=== PATIENT | female | born 1985 | race American Indian/Alaskan Native ===

== ENCOUNTER 2018-03-26 09:55 | Outpatient (CLI) | payer OTHER ==
--- NOTE | 2018-03-26 11:31 | Mammography Report ---
BILATERAL DIGITAL DIAGNOSTIC MAMMOGRAM with CAD and LEFT BREAST ULTRASOUND: 03/26/18 CLINICAL: 32-year-old with a palpable left breast lump. She states that she has felt it for about one month. COMPARISON:None. This is a baseline mammogram. FINDINGS: The breasts are heterogeneously dense, which may obscure small masses. An oval 4 cm upper outer left breast mass corresponds to the palpable lump. Margins are indistinct or obscured.No other mass, architectural distortion or suspicious calcifications. Ultrasound of the upper outer left breast was performed and demonstrated an oval solid heterogeneous hypoechoic relatively smooth mass at 2 o'clock 13 cm from the nipple. It measures 4.1 x 4.1 x 1.7 cm. Portions of the margin are mildly lobulated. No posterior shadowing or through transmission. IMPRESSION: A probably benign 4.1 cm left breast mass at 2 o'clock 13 cm from the nipple.Recommend ultrasound-guided needle biopsy to confirm benignity. BI-RADS CATEGORY: 4A--Mildly Suspicious I discussed the findings and the recommendation for needle core biopsy with the patient at the time of the examination. ACR BI-RADS MAMMOGRAPHIC CODES: 0 = Needs additional imaging evaluation; 1 = Negative; 2 = Benign; 3 = Probably benign; 4 = Suspicious; 5 = Malignant; 6 = Known biopsy-proven malignancy COMMENT: 1. Dense breast tissue, i.e., adenosis, fibrocystic changes, etc., may obscure an underlying neoplasm. 2. Approximately 10% of cancers are not detected with mammography. 3. A negative mammography report should not delay biopsy if a clinically suspicious mass is present. COMMENT: Patient follow-up letters are generated by our [employer] application.
== END 2018-03-26 09:56 | disposition home or self-care (01) ==
LOC: SPVWC 09:55
PROVIDERS: ATTEND Obstetrics & Gynecology
DX: N63.21 Unspecified lump in the left breast, upper outer quadrant (principal)
CPT/HCPCS: 77066

== ENCOUNTER 2018-04-14 12:53 | Outpatient (CLI) | payer OTHER ==
--- NOTE | 2018-04-14 14:21 | Mammography Report ---
LEFT DIGITAL DIAGNOSTIC MAMMOGRAM: 04/14/18 12:53:00 CLINICAL: For clip placement immediately status post ultrasound biopsy. COMPARISON:03/26/18 FINDINGS: A biopsy clip is now identified within the upper outer mass. IMPRESSION: Concordant clip placement status post ultrasound biopsy. BI-RADS CATEGORY: 4A--Mildly Suspicious Pathology pending.
--- NOTE | 2018-04-14 15:20 | Ultrasound Report ---
ULTRASOUND GUIDED NEEDLE CORE BIOPSY LEFT BREAST WITH CLIP PLACEMENT: 04/14/18 13:00:00 CLINICAL: A 4 cm left breast mass at 2 o'clock 13 cm from the nipple. COMPARISON :03/26/18 FINDINGS: The procedure was explained to the patient and informed consent was obtained. Ultrasound demonstrated the previous described oval solid mass.. I marked the breast with a felt tip marker and a time out was called. The skin was prepped with Betadine and anesthetized with 1% lidocaine. Needle core biopsy was performed through a tiny dermatotomy using ultrasound guidance, 2% lidocaine with epinephrine for deep anesthesia and a 14-gauge Achieve biopsy device. 4 cores were obtained and placed in formalin. A clip was deployed within the mass. The patient tolerated the procedure well and there were no apparent complications. Hemostasis was achieved with minimal pressure and a sterile dressing was applied. A two view mammogram demonstrated concordant placement of the clip. She left the department in good condition and was given instructions for wound care and followup. IMPRESSION: Uncomplicated ultrasound guided needle core biopsy with clip placement left breast.
== END 2018-04-14 12:54 | disposition home or self-care (01) ==
LOC: SPVWC 12:53
PROVIDERS: ATTEND Obstetrics & Gynecology
DX: D24.2 Benign neoplasm of left breast (principal); N60.22 Fibroadenosis of left breast; J45.909 Unspecified asthma, uncomplicated; E66.9 Obesity, unspecified; Z68.41 Body mass index [BMI] 40.0-44.9, adult; Z85.3 Personal history of malignant neoplasm of breast; Z90.12 Acquired absence of left breast and nipple; Z91.013 Allergy to seafood; Z90.49 Acquired absence of other specified parts of digestive tract; Z79.899 Other long term (current) drug therapy; Z91.041 Radiographic dye allergy status; Z98.891 History of uterine scar from previous surgery; Z86.2 Personal history of diseases of the blood and blood-forming organs and certain disorders involving the immune mechanism; Z98.890 Other specified postprocedural states
CPT/HCPCS: 88305

== ENCOUNTER 2021-04-25 05:57 | Inpatient (IN) | payer OTHER ==
[2021-04-18 10:30] LABS: BUN/Creatinine Ratio 10; Blood Urea Nitrogen 8 mg/dL (7-17); Calcium 9.7 mg/dL (8.4-10.2); Hemolysis Index 2
[2021-04-18 10:48] LABS: Eosinophils % (Auto) 0.8 % (0.0-4.3); Hematocrit 39.7 % (30.3-42.9); Hemoglobin 12.6 gm/dl (10.1-14.3); Lymphocytes # (Auto) 1.6 K/mm3 (1.2-5.4); Lymphocytes % (Auto) 45.4 % (13.4-35.0); Mean Corpuscular HGB Conc 32 % (30-34); Mean Corpuscular Volume 92 fl (79-97); Monocytes # (Auto) 0.5 K/mm3 (0.0-0.8); Platelet Count 208 K/mm3 (140-440); Red Blood Count 4.33 M/mm3 (3.65-5.03)
--- NOTE | 2021-04-18 17:06 | Anesthesia Consultation ---
Anesthesia Consult and Med Hx Date of service: 04/25/21 - Airway Anesthetic Teeth Evaluation: Caps (Braces and implant) ROM Head & Neck: Adequate Mental/Hyoid Distance: Adequate Mallampati Class: Class II Intubation Access Assessment: Good - Pre-Operative Health Status ASA Pre-Surgery Classification: ASA2 Proposed Anesthetic Plan: General Nerve Block: TAP - Pulmonary Hx Smoking: No Hx Sleep Apnea: No - Cardiovascular System Hx Hypertension: Yes (IN PAST-OFF MEDS SINCE 07/29. Elevated BP today) Hx Heart Attack/AMI: No - Central Nervous System Hx Back Pain: Yes (OCC.) Hx Psychiatric Problems: Yes (Anxiety) - Hematic Hx Anemia: No Hx Sickle Cell Disease: Yes (TRAIT) - Other Systems Hx Alcohol Use: No Hx Substance Use: No Hx Cancer: No
--- NOTE | 2021-04-24 09:55 | History and Physical Report ---
History of Present Illness Date of examination: 04/21/21 Date of admission: 04/25/21 Chief complaint: fibroids History of present illness: Visit Type: Pre-Op CC: pre op. History of Present Illness: pt presents for Pre-op visit: Abdominal Myomectomy............... ......................................................Judi Tee April 19, 2021 9:51 AM Mask, Patient denies fever, cough, shortness of breath and exposure to COVID-19. Pt presents for preop for abdominal myomectomy. All risk/benefits/alternatives were d/w pt and questions were addressed and answered. Risk including but not limited to injury to: infection, bleeding, need for transfusion , injury bladder, bowel, uterus, ovaries, tubes need for hysterectomy as a life saving measure, fibroids remaining in utero. Pt expressed understanding. Consent signed and placed on the chart. Vital Signs: Patient Profile: 35 Years Old Female LMP: 03/27/2021 Height: 65 inches Weight: 192 pounds BMI: 31.95 Temp: 98.0 degrees F BP sittin / 82 (left arm) Menstrual History: LMP (date): 03/27/2021 Current Method of Contraception: Abstinence Date of Last Pap Smear: 03/30/2020 [OB-New Pt-Past Preg Hx-CCC] SCADA ENGINEER History Uterine Surgery (not C/S): negative Operations: Negative Past Surgical History Hospitalizations: negative Anesthesia Complications: negative Abnormal PAP: negative Uterine Anomaly: negative TYLOR Exposure: negative Infertility: negative Medical Hx Comments: fibroids Infection History HIV Risk Eval: no Personal hx. of genital herpes: no Partner hx. of genital herpes: no Hx of STD: condy Active Medications (reviewed today): elderberry () SEAMOSS () MAGNESIUM PILLS () VITAMIN C () VITAMIN D () IBUPROFEN () MULTI VITAMIN () Current Allergies (reviewed today): * SHELLFISH (Critical) Past Medical History: Reviewed history from 03/29/2020 and no changes required: Fibroids Past Surgical History: Reviewed history from 12/21/2010 and no changes required: Negative Past Surgical History [FH--[facility]] Risk Factors: PAP Smear History: Date of Last PAP Smear: 03/30/2020 Review of Systems General Denies fever, chills, sweats, anorexia, fatigue, weakness, malaise, weight loss and sleep disorder. Denies nausea, vomiting, headache, swelling of legs, abdominal pain, vaginal discharge, vaginal bleeding and contractions. Complains of urinary frequency, abnormal vaginal bleeding and pelvic pain. Denies vaginal discharge, incontinence, dysuria, hematuria, amenorrhea, menorrhagia, genital sores, decreased libido, painful periods, painful sex, urinary urgency, hot flashes, vaginal dryness, vaginal itching and vaginal odor. CV Denies chest pains, palpitations, syncope, dyspnea on exertion, orthopnea, PND and peripheral edema. Resp Denies cough, dyspnea at rest, excessive sputum, hemoptysis, wheezing and pleurisy. GI Denies nausea, vomiting, diarrhea, constipation, change in bowel habits, abdominal pain, melena, hematochezia, jaundice, gas/bloating, indigesti on/heartburn, dysphagia and odynophagia. Endo Denies cold intolerance, heat intolerance, polydipsia, polyphagia, polyuria and unusual weight change. Breast Denies left breast lump, right breast lump, nipple discharge, bloody discharge from nipple, breast pain, abnormal mammogram and breast enlargement. MS Denies back pain, joint pain, joint swelling, muscle cramps, muscle weaknes s, stiffness, arthritis, sciatica, restless legs, leg pain at night and leg pain with exertion. Derm Denies rash, itching, dryness and suspicious lesions. Neuro Denies paralysis, paresthesias, headache, seizures, tremors, vertigo, transient blindness, frequent falls, frequent headaches and difficulty walking. Psych Denies depression, anxiety, irritability and mood swings. Eyes Denies blurring, diplopia, irritation, discharge, vision loss, eye pain and photophobia. ENT Denies earache, ear discharge, tinnitus, decreased hearing, nasal congestion, nosebleeds, sore throat and hoarseness. Allergy Denies urticaria, allergic rash, hay fever and recurrent infections. Heme Denies abnormal bruising, bleeding and enlarged lymph nodes. [Labs In-House] Physical Exam Appearance: well developed, well nourished, no acute distress Other Exams Lungs: no rales, rhonchi, or wheezes Abdomen: mass palpated several cm above the umbilicus right >left irregular in shape firm Extremities: normal alignment, no joint enlargement, crepitus, masses or tenderness; normal tone and strength Genitourinary Exam Comments: deferred until EUA Past History Past Medical History: other (see hpi) Past Surgical History: other (see hpi) SCADA ENGINEER History: other (see hpi) Family/Genetic History: other (see hpi) Social history: other (see hpi) Medications and Allergies Allergies Allergy/AdvReac Type Severity Reaction Status Date / Time No Known Allergies Allergy Unverified 04/17/21 11:37 Home Medications Medication Instructions Recorded Confirmed Last Taken Type Ascorbic Acid [Vitamin C] 1,000 mg PO DAILY 04/17/21 04/17/21 Unknown History Gyiopsc-Bwweactnx-Vwyj Tablet 1 tab PO DAILY 04/17/21 04/17/21 Unknown History Cholecalciferol (Vitamin D3) 5,000 unit PO DAILY 04/17/21 04/17/21 Unknown History [Vitamin D3] Iron 45 mg PO DAILY 04/17/21 04/17/21 Unknown History Vit C/Vit D3/E/Zinc/Elderberry 1 each PO DAILY 04/17/21 04/17/21 Unknown History [Airborne Elderberry Gummy] activated charcoaL [Activated 520 mg PO DAILY 04/17/21 04/17/21 Unknown History Charcoal] Active Meds: Active Medications Acetaminophen (Acetaminophen 500 Mg Tab) 1,000 mg PO ONCE ONE Stop: 04/25/21 06:01 Celecoxib (Celecoxib 200 Mg Cap) 400 mg PO PREOP NR Stop: 04/25/21 23:59 Fentanyl (Fentanyl 100 Mcg/2 Ml Inj) 100 mcg IV ONCE ONE Stop: 04/25/21 06:01 Lactated Ringer's (Lactated Ringers) 1,000 mls @ 125 mls/hr IV DIRECT KAREN Magnesium Oxide (Magnesium Oxide 400 Mg Tab) 400 mg PO ONCE ONE Stop: 04/25/21 06:01 Methocarbamol (Methocarbamol 750 Mg Tab) 1,500 mg PO ONCE ONE Stop: 04/25/21 06:01 Midazolam HCl (Midazolam 2 Mg/2 Ml Inj) 2 mg IV PREOP NR Stop: 04/25/21 23:59 Review of Systems All systems: negative - Vital Signs Vital signs: Vital Signs Temp Pulse Resp BP Pulse Ox 97.9 F 85 20 144/102 98 04/18/21 09:30 04/18/21 09:30 04/18/21 09:30 04/18/21 09:30 04/18/21 09:30 Temp Pulse Resp BP Pulse Ox 97.9 F 85 20 144/102 98 04/18/21 09:30 04/18/21 09:30 04/18/21 09:30 04/18/21 09:30 04/18/21 09:30 - Physical Exam Cardiovascular: Normal S1, Normal S2 Lungs: Positive: Clear to auscultation, Normal air movement Abdomen: Positive: normal appearance, soft, mass (palpated above umbilicus), other Genitourinary (Female): Positive: other (deferred) Results Result Diagrams: 04/18/21 06:00 04/18/21 06:00 All other labs normal. Assessment and Plan - Patient Problems (1) Fibroid Status: Acute Plan to address problem: -admit an prepare for abdominal myomectomy -consents signed and placed the chart.
[~2021-04-25 05:57] MED LIST: SODIUM CHLORIDE 0.9% 50 ML IVPB IV ONE; SODIUM CHLORIDE 0.9% IRR 1,500 ML BOTTLE IR ONE; VASOPRESSIN 20 UNIT/1 ML INJ IV ONE; WATER FOR IRRIG STERILE 1,500 ML BOTTLE IR ONE
[2021-04-25] MEDS ORDERED: ACETAMINOPHEN 500 MG TAB PO ONE ×2 (06:00→19:30)
[2021-04-25] MEDS ORDERED: MIDAZOLAM 2 MG/2 ML INJ IV NR (06:00)
[2021-04-25] MEDS ORDERED: CELECOXIB 200 MG CAP PO NR (06:00)
[2021-04-25] MEDS ORDERED: GABAPENTIN 300 MG CAP PO NR (06:00)
[2021-04-25] MEDS ORDERED: ceFAZolin/Water 2 GM/20 ML 2 GM/20 ML SYRINGE IV NR (06:00)
[2021-04-25] MEDS ORDERED: fentaNYL 100 MCG/2 ML INJ IV ONE (06:00)
[2021-04-25] MEDS ORDERED: MAGNESIUM OXIDE 400 MG TAB PO ONE (06:00)
[2021-04-25] MEDS: LACTATED RINGERS 1,000 ML IV SCH ×2 (06:40→19:22)
[2021-04-25] MEDS ORDERED: METHYLENE BLUE 50 MG/10 ML AMP ONE (07:07)
[2021-04-25] MEDS ORDERED: SODIUM CHLORIDE 0.9% 100 ML ONE (07:07)
[2021-04-25] MEDS ORDERED: VASOPRESSIN 20 UNIT/1 ML INJ ONE (07:07)
[2021-04-25] MEDS ORDERED: CITRIC ACID-SOD CITRATE 500 ML IV ONE (07:07)
[2021-04-25] MEDS ORDERED: LIDOCAINE MPF (2%) 20 MG/1 ML VIAL 5 ML ONE (07:27)
[2021-04-25] MEDS ORDERED: ROCURONIUM 50 MG/5 ML INJ IV ONE ×3 (07:27→11:05)
[2021-04-25] MEDS ORDERED: ONDANSETRON 4 MG/2 ML INJ ONE (07:27)
[2021-04-25] MEDS ORDERED: KETAMINE/STERILE WATER 50 MG/ML SYRINGE ONE (07:27)
[2021-04-25] MEDS ORDERED: propofoL 200 MG/20 ML VIAL IV ONE (07:27)
[2021-04-25] MEDS ORDERED: BUPIVACAINE/PF (0.25%) 2.5 MG/ML 30 ML VIAL INFILTRATI ONE (07:29)
[2021-04-25] MEDS ORDERED: cloNIDine/PF 1,000 MCG/10 ML VIAL EP ONE (07:29)
[2021-04-25] MEDS ORDERED: dexAMETHasone 4 MG/ML VIAL ONE (07:29)
[2021-04-25] MEDS ORDERED: dexAMETHasone 20 MG/5 ML VIAL ONE (07:30)
[2021-04-25] MEDS ORDERED: SODIUM CHLORIDE 0.9% 50 ML IVPB IV ONE (08:39)
[2021-04-25] MEDS ORDERED: SODIUM CHLORIDE 0.9% IRR 1,500 ML BOTTLE IR ONE ×2 (08:39)
[2021-04-25] MEDS ORDERED: VASOPRESSIN 20 UNIT/1 ML INJ IV ONE (08:39)
--- NOTE | 2021-04-25 09:10 | Anesthesia Day of Surgery ---
Anesthesia Day of Surgery - Day of Surgery Patient Examined: Yes Patient H&P Reviewed: Yes Patient is NPO: Yes
[2021-04-25] MEDS ORDERED: ONDANSETRON 4 MG/2 ML INJ IV PRN (09:12)
[2021-04-25] MEDS ORDERED: SODIUM CHLORIDE 0.9% 1000 ML 1,000 ML ONE ×4 (09:39→13:27)
[2021-04-25] MEDS ORDERED: ePHEDrine SULFATE 50 MG/1 ML INJ ONE (09:48)
[2021-04-25] MEDS ORDERED: ALBUMIN HUMAN 5% (12.5 GM/250 ML) INJ IV ONE (10:46)
[2021-04-25 10:51] LABS: Basophils % (Auto) 0.2 % (0.0-1.8); Eosinophils % (Auto) 0.2 % (0.0-4.3); Hematocrit 27.4 % (30.3-42.9); Lymphocytes # (Auto) 0.8 K/mm3 (1.2-5.4); Lymphocytes % (Auto) 10.2 % (13.4-35.0); Mean Corpuscular HGB Conc 33 % (30-34); Mean Corpuscular Volume 91 fl (79-97); Monocytes # (Auto) 0.1 K/mm3 (0.0-0.8); Monocytes % (Auto) 1.5 % (0.0-7.3); Platelet Count 159 K/mm3 (140-440); Red Cell Distribution Width 14.3 % (13.2-15.2)
[2021-04-25] MEDS ORDERED: PHENYLEPHRINE/NS 1,000 MCG/10 ML SYRINGE (OR USE) IV ONE ×2 (11:00→13:16)
[2021-04-25] MEDS ORDERED: SODIUM CHLORIDE 0.9% 500 ML 500 ML IV ONE (11:02)
[2021-04-25] MEDS ORDERED: MORPHINE 4 MG/1 ML INJ IV PRN (12:17)
[2021-04-25] MEDS ORDERED: traMADol 50 MG TAB PO PRN (12:17)
[2021-04-25] MEDS ORDERED: MORPHINE 2 MG/1 ML INJ IV PRN (12:17)
[2021-04-25] MEDS ORDERED: IBUPROFEN 800 MG TAB PO PRN (12:17)
--- NOTE | 2021-04-25 12:17 | Operative Report ---
Operative Report Operative Report: Date of procedure: 04/25/2021 Pre-operative diagnosis: Fibroids Post-operative diagnosis: Same Procedure name(s): 1. Abdominal myomectomy 2. Examine anesthesia Surgeon: Dr. Albania Weaver Blue Leather Sorter: Dr. Saundra Hardy Anesthesia: Gen. endotracheal anesthesia EBL: 800 mL Urine output: 370 mL of clear urine out at end of the procedure Fluids: 2700 mL Albumin: 250 mL Cell Saver: 1 unit Findings: An large abdominal mass extending almost to the xiphoid. Multiple my omas removed of various sizes. A total of 24 fibroids were removed. Normal fallopian tubes and ovaries bilaterally Indications: Patient with a long history of uterine fibroids that began to be symptomatic. Patient desired to retain her uterus. All risk benefits and alternatives were discussed with the patient. Consents were signed and placed on the chart. Procedure: Procedure: Patient was taken to the operating room wishes placed under general endotracheal anesthesia in dorsal lithotomy position. The patient was then prepped and draped in normal sterile fashion. A midline abdominal inc ision was made with the scalpel and carried down to the underlying layer of fascia with the Bovie. The fascia was incised in the midline and this incision was extended superiorly and inferiorly with the Bovie. The rectus muscles were bluntly divided in the midline. The peritoneum was identified and entered into sharply. This incision was extended superiorly and inferiorly via blunt and sharp dissection. The uterus was then exteriorized. Pitressin was placed subserosally over the numerous myomas. The myomectomy was performed in usual fashion with the removal of 24 myomas as stated above. All uterine incisions were closed using several layers with 0 Vicryl. Excellent hemostasis was noted. There was copiously irrigated. Interceed was placed over the uterine incisions. Excellent hemostasis was noted Cell Saver team was present during the procedure and patient did receive 250 mL of red blood cells back. The uterus was returned to the abdomen. The anterior rectus muscles and antirectus fascia was reapproximated in a single stitch using 0 looped PDS. The subcutaneous fat was reapproximated using 2-0 Vicryl in interrupted sutures. The skin was reapproximated with 4-0 Monocryl in a running fashion with Surgicel placed over the skin incision. Sponge lap and needle counts were all correct 3. Patient was taken to the recovery room awake and in stable condition.
[2021-04-25] MEDS ORDERED: SUGAMMADEX SODIUM 200 MG/2 ML VIAL IV ONE (12:21)
[2021-04-25] MEDS ORDERED: ACETAMINOPHEN 325 MG TAB PO PRN (12:27)
[2021-04-25] MEDS: HYDROmorphone 1 MG/1 ML INJ IV PRN ×2 (12:52→13:05)
[2021-04-25] MEDS ORDERED: SODIUM CHLORIDE 0.9% 200 ML ONE (13:17)
[2021-04-25] MEDS: ceFAZolin/NS 1 GM/50 ML 1 GM/50 ML BAG IV SCH ×2 (16:08→23:49)
[2021-04-25 17:54] LABS: Hematocrit 24.4 % (30.3-42.9); Hemoglobin 7.9 gm/dl (10.1-14.3)
[2021-04-25] MEDS ORDERED: SODIUM CHLORIDE 0.9% 500 ML 500 ML IV SCH (18:02)
--- NOTE | 2021-04-25 18:07 | Event Note ---
Date: 04/25/21 Findings of sx were d/w pt. Pt now states that yesterday she had a heavy bled stating " I bled out". I advised that her h/h was likely lower than what it was on last week at her pre op visit. Will give additional two units of blood and repeat h/h in the am. Plan of care d/w and all questions were addressed and answered. RN informed of plan to transfuse two units. Will bolus with fluids at this time while blood is being prepared. Incision c/d id. abdomen not distended but uterus s palpated at the umbilicus and is firm at this time. Will con't to closely monitor.
[2021-04-25] MEDS ORDERED: LACTATED RINGERS 500 ML IV ONE (19:15)
[2021-04-25] MEDS ORDERED: diphenhydrAMINE 50 MG/ML VIAL IV ONE (19:30)
--- NOTE | 2021-04-25 21:32 | Event Note ---
Date: 04/25/21 Called by RN and told that there is no O neg blood in house and it must be ordered for release. Blood bank was not able to give an estimated time as to when the blood would be available. Pt stable at this time as per RN. Will cont to support with IVFs until able to replace volume with blood.
[2021-04-25] MEDS ORDERED: ePHEDrine SULFATE 50 MG/1 ML INJ IV PRN (23:53)
--- NOTE | 2021-04-26 00:22 | Event Note ---
Date: 04/26/21 Called by RN again due to hypotension and pt c/o feeling weak. Order for ephedrine given as well as another 500 bolus of LR. I had called the blood bank several times to get an estimate of the arrival of the blood but got no answer. When provider arrived at the bedside within 30 of speaking with RN, Blood was being verified and hanged by 2RNs. Pt awake and talking and states she is feeling descent. She no longer is c/o feeling dizzy. She does c/o some buttocks pain and shoulder pain (right) but no chest pain or palpitations. Stat h/h was ordered prior to arrival of the blood but has not been drawn. This was in an effort to see were pt was with h/h. 2 units ordered but only one released emergently due to blood shortages and I was told this unit is the only one in house. Pt is aware of the critical shortage and her and her mother have been updated as to the delay. All questions have been addressed and answered. Pt advised that we will give the one unit and then check her h/h. She expressed understanding.
[2021-04-26] MEDS: SIMETHICONE 80 MG CHEW TAB PO PRN ×3 (00:42→21:03)
[2021-04-26] MEDS: HYDROcodone/ACETAMINOPHEN 5-325 MG TAB PO PRN ×2 (05:06→17:54)
[2021-04-26] MEDS: LACTATED RINGERS 1,000 ML IV SCH (05:06)
[2021-04-26 06:33] LABS: Hematocrit 23.9 % (30.3-42.9); Hemoglobin 7.8 gm/dl (10.1-14.3)
[2021-04-26] MEDS: FERROUS SULFATE 325 MG TAB PO SCH ×3 (08:28→21:03)
[2021-04-26 10:39] LABS: Hematocrit 24.6 % (30.3-42.9); Hemoglobin 8.2 gm/dl (10.1-14.3)
--- NOTE | 2021-04-26 10:48 | Progress Note ---
Assessment and Plan - Patient Problems (1) Fibroid Current Visit: No Status: Acute Plan to address problem: POD #1 s/p abd myomectomy -con't post op care -adad -d/c tomorrow if aFVSS (2) Symptomatic anemia Current Visit: Yes Status: Acute Plan to address problem: -s/p 2 units of blood. Limited with availability of blood due to pt blood type and nation wide blood shortage. Was called by director of lab and advised the if pt is critical ie will if she does not have the transfusion then she will work on getting additional unit. Directory advised that pt is stable but does show s/sx of anemia ie dizziness with ambulation and hypotension but she is not critical or at the point of . -h/h pending and has be drawn -consider iron transfusion if pt still symptomatic and hgb <7 (3) Hypotension Current Visit: Yes Status: Acute Qualifiers: Hypotension type: postprocedural hypotension Qualified Code(s): I95.81 - Postprocedural hypotension Plan to address problem: -repeat h/h. likely due to low volume due to blood loss -con't ivfs. -anemia precautions given -follow h/h to evaluate need for repeat xfusion -pt overall doing much better today and has no sx at this time except for dizziness x1. Subjective - Subjective Date of service: 04/26/21 (LATE ENTRY. PT SEEN AT 0900) Principal diagnosis: POD #1 S/P ABD MYOMECTOMY 2)SYMPTOMATIC ANEMIA Interval history: pt states she is feeling better after second unit of blood. 2 untis ordered but only one released from [facility] for emergency use. She still has hypotension but stable in same ranges as prior and slightly improved. She had one episode of dizziness but currently has no dizziness, palpitations, or shortness of breath or chest pain. I d/w the limitations with transfusions due to blood shortage nation wide with her blood type due to covid. I advised we will repeat h/h and if still at 7 or higher closely monitor and consider and iron transfuison if not able to get blood. She and mother expressed understanding and agree with plan of care. Patient reports: appetite normal, voiding normally, dizzy ambulation, pain well controlled, ambulating normally, no flatus Objective - Vital Signs Latest vital signs: Vital Signs Temp Pulse Resp BP BP Pulse Ox 04/26/21 08:06 98.0 F 92 H 18 94/51 99 04/26/21 05:07 100/57 04/26/21 05:06 20 04/26/21 02:58 98.2 F 88 18 98/66 100 04/26/21 02:29 98.0 F 93 H 18 98/65 100 04/26/21 01:59 98.0 F 86 18 96/66 100 04/26/21 01:29 98.1 F 90 20 97/59 100 04/26/21 00:59 97.9 F 89 20 93/67 100 04/26/21 00:29 97.5 F L 92 H 18 97/66 100 04/26/21 00:28 97.4 F L 90 18 97/69 100 04/26/21 00:14 97.4 F L 91 H 20 96/66 100 04/26/21 00:09 97.2 F L 100 H 20 89/64 100 04/25/21 23:38 20 04/25/21 23:26 91 H 20 89/60 100 04/25/21 22:00 97.2 F L 20 92/88 100 04/25/21 20:12 20 04/25/21 20:00 100 04/25/21 19:48 98.2 F 98 H 20 90/55 100 04/25/21 18:18 98.3 F 95 H 18 88/56 100 04/25/21 14:05 97.6 F 102 H 18 99/62 97 04/25/21 13:40 98.2 F 97 H 16 102/62 100 04/25/21 13:30 92 H 16 100/50 100 04/25/21 13:15 96 H 16 97/61 100 04/25/21 13:00 97 H 18 104/62 100 04/25/21 12:45 103 H 18 102/59 100 04/25/21 12:40 105 H 18 95/73 100 04/25/21 12:35 97.8 F 106 H 17 119/79 100 Intake and Output 04/25/21 04/26/21 04/26/21 22:59 06:59 14:59 Intake Total 1890 1490 Output Total 725 600 Balance 1165 890 Intake: IV 1050 1000 ANCEF/NS 1 GM/50 ML 1 gm 50 In 50 ml @ 100 mls/hr IV Q8H [facility] Rx#:[id number] Lactated Ringers 1,000 ml 1000 1000 @ 125 mls/hr IV DIRECT [facility] Rx#:[id number] Oral 360 240 Intake, Free Water 480 Blood Product 250 Leukoreduced Red Blood 250 Cells Unit [id number] Output: Urine 725 600 Indwelling Catheter 725 600 Other: Total, Intake Amount 240 120 Total, Output Amount 300 400 Voiding Method Indwelling Catheter - Exam Cardiovascular: Present: Normal S1, Normal S2 Lungs: Present: Clear to auscultation, Normal air movement Abdomen: Present: normal appearance, soft, normal bowel sounds. Absent: distention, tenderness, guarding Uterus: Present: normal, firm, fundal height at umbilicus. Absent: bogginess, tenderness Extremities: Present: normal. Absent: edema Incision: Present: normal, dry, intact, dressed - Labs Labs: Abnormal lab results 04/25/21 04/25/21 04/25/21 Range/Units 06:40 17:45 Unknown RBC 3.00 L (3.65-5.03) M/mm3 Hgb 7.9 L 9.0 L (10.1-14.3) gm/dl Hct 24.4 L 27.4 L (30.3-42.9) % Lymph % (Auto) 10.2 L (13.4-35.0) % Lymph # (Auto) 0.8 L (1.2-5.4) K/mm3 Seg Neutrophils % 87.9 H (40.0-70.0) % Crossmatch See Detail 04/26/21 Range/Units 05:42 RBC (3.65-5.03) M/mm3 Hgb 7.8 L (10.1-14.3) gm/dl Hct 23.9 L (30.3-42.9) % Lymph % (Auto) (13.4-35.0) % Lymph # (Auto) (1.2-5.4) K/mm3 Seg Neutrophils % (40.0-70.0) % Crossmatch
--- NOTE | 2021-04-26 10:53 | Event Note ---
Date: 04/26/21 f/u h/h 8.05/04. improved and pt stable. Will cont to closely monitor
--- NOTE | 2021-04-26 20:49 | Event Note ---
Date: 04/26/21 Pt seen at 1030 pm. Dressing removed. Some mild bleeding noted from raw skin edges. steristrips applied and pressure dressing. Pt tolerated procedure well. Wound care d/w pt and mother. Both expressed understandng. Pt tolerated a regular diet and has no c/o at this time.
[2021-04-27] MEDS: HYDROcodone/ACETAMINOPHEN 5-325 MG TAB PO PRN ×2 (00:22→06:07)
[2021-04-27] MEDS: FERROUS SULFATE 325 MG TAB PO SCH (08:13)
--- NOTE | 2021-04-27 08:33 | Progress Note ---
Assessment and Plan - Patient Problems (1) Fibroid Current Visit: No Status: Acute (2) Symptomatic anemia Current Visit: Yes Status: Acute (3) Hypotension Current Visit: Yes Status: Acute Qualifiers: Hypotension type: postprocedural hypotension Qualified Code(s): I95.81 - Postprocedural hypotension (4) Tachycardia with heart rate 100-120 beats per minute Current Visit: Yes Status: Acute Plan to address problem: -due to the anemia -cont supportive care -d/c on po iron Subjective - Subjective Principal diagnosis: POD #2 S/P ABD MYOMECTOMY 2)SYMPTOMATIC ANEMIA Interval history: Pt doing well and desires d/c home today. D/w and mother the mild tachycardia due to the anemia. Pt encouraged to take po iron bid to restore iron stores. She denies any chest pain, palpitations, or shortness breath at this time. Patient reports: appetite normal, voiding normally, pain well controlled, flatus, no dizzy ambulation Objective - Vital Signs Latest vital signs: Vital Signs Temp Pulse Resp Resp BP BP Pulse Ox 04/27/21 07:56 98 04/27/21 06:07 18 04/27/21 05:17 98.6 F 115 H 16 95 04/27/21 05:15 98.6 F 114 H 16 113/65 94 04/27/21 00:22 18 04/27/21 00:15 98.8 F 114 H 16 108/65 94 04/26/21 21:27 18 04/26/21 21:00 99 04/26/21 20:10 98.6 F 104 H 16 101/63 97 04/26/21 17:31 99.1 F 109 H 18 113/80 99 04/26/21 12:27 98.9 F 100 H 18 112/67 99 Intake and Output 04/26/21 04/27/21 04/27/21 22:59 06:59 14:59 Intake Total 240 120 Output Total 900 600 Balance -660 -480 Intake: Oral 240 Intake, Free Water 120 Output: Urine 900 600 Indwelling Catheter 450 Void 450 600 Other: Total, Intake Amount 240 Total, Output Amount 450 600 Voiding Method Toilet # Voids Indwelling Catheter 1 Void 1 - Exam Breasts: Present: tender Cardiovascular: Present: Normal S1 Lungs: Present: Clear to auscultation, Normal air movement Abdomen: Present: normal appearance, soft, normal bowel sounds. Absent: distention, tenderness, guarding Deep Tendon Reflex Grade: Normal +2 Incision: Present: normal, dry, intact, other (incision open to air with steristrips in place. no active bleeding.) - Labs Labs: Abnormal lab results 04/25/21 04/26/21 Range/Units 06:40 09:24 Hgb 8.2 L (10.1-14.3) gm/dl Hct 24.6 L (30.3-42.9) % Crossmatch See Detail
--- NOTE | 2021-04-27 08:46 | Discharge Summary ---
Providers - Providers Date of Admission: 04/25/21 05:57 Attending physician: BROOK QURESHI Primary care physician: ARACELIS MURPHY Hospitalization Disposition: 30 STILL A PATIENT - Discharge Diagnoses (1) Fibroid Status: Acute (2) Symptomatic anemia Status: Acute (3) Hypotension Status: Acute Qualifiers: Hypotension type: postprocedural hypotension Qualified Code(s): I95.81 - Postprocedural hypotension Plan - Discharge Medications Prescriptions: Docusate Sodium [Colace] 100 mg PO BID PRN #60 capsule PRN Reason: Constipation Ferrous Sulfate [Feosol 325 MG tab] 325 mg PO QDAY #60 tablet Ibuprofen [Motrin 800 MG tab] 800 mg PO Q8HR PRN #30 tablet PRN Reason: Pain, Moderate (4-6) oxyCODONE /ACETAMINOPHEN [Percocet 5/325] 1 tab PO Q4HR #30 tab - Provider Discharge Summary Additional instructions: [] Smoking cessation referral if applicable(refer to patient education folder for contact #) [] Refer to [facility]'s [facility] Booklet Call your doctor immediately for: * Fever > 100.5 * Heavy vaginal bleeding ( >1 pad per hour) * Severe persistent headache * Shortness of breath * Reddened, hot, painful area to leg or breast * Drainage or odor from incision. * Keep incision clean and dry at all times and follow doctor's instructions regarding bathing/showering - Follow up plan Follow up: ARACELIS MURPHY MD [Primary Care Provider] - 7 Days
[2021-04-27] MEDS: SIMETHICONE 80 MG CHEW TAB PO PRN (09:56)
[2021-04-27 11:59] VITALS: BP 129/84
== END 2021-04-27 12:30 | disposition home or self-care (01) | DRG 743 ==
LOC: 3A 05:57 → OB 12:36
PROVIDERS: ADMIT Obstetrics & Gynecology; ATTEND Obstetrics & Gynecology
PROC: 0UB90ZZ Excision of Uterus, Open Approach (ICD-10-PCS; principal; 2021-04-25)
PROC: 30233N1 Transfusion of Nonautologous Red Blood Cells into Peripheral Vein, Percutaneous Approach (ICD-10-PCS; 2021-04-25)
DX: D25.9 Leiomyoma of uterus, unspecified (principal); I10 Essential (primary) hypertension; Z20.822 Contact with and (suspected) exposure to COVID-19; I95.81 Postprocedural hypotension; D64.9 Anemia, unspecified; R00.0 Tachycardia, unspecified
CPT/HCPCS: 36415; 64450; 80048; 81025; 85014; 85018; 85025; 86850; 86900; 86901; 86920; 88305; G0378; J3490; J7120; Q0162; J0690; J0735; J1100; J1170; J1200; J2250; J2370; J2405; J2704; J3010; J7030; J7040; P9016; P9045; Q9968; U0003

== ENCOUNTER 2021-07-03 07:33 | Outpatient (CLI) | payer OTHER ==
--- NOTE | 2021-07-03 17:18 | Mammography Report ---
DIGITAL SCREENING MAMMOGRAM WITH CAD, 07/03/2021 CLINICAL INFORMATION / INDICATION: Routine screening TECHNIQUE: Digital bilateral 2D mammography was obtained in the craniocaudal and mediolateral obliqu e projections. This examination was interpreted with the benefit of Computer-Aided Detection analysis . COMPARISON: Bilateral mammogram 03/26/2018, left mammogram 04/14/2018 FINDINGS: Breast Density: The breasts are heterogeneously dense, which may obscure small masses. No dominant mass, suspicious calcifications, or architectural distortion in either breast. Mass in the posterior upper outer left breast is unchanged. Biopsy clip is again seen in the margin o f the mass. No other changes are seen. IMPRESSION: Stable appearance of left mass which has previously been biopsied Follow up recommendation: Clinical correlation with patient's current complaint of left palpable abno rmality is suggested. If this is considered significant, ultrasound would be suggested. BI-RADS Category 2: BENIGN. A "normal" or negative report should not discourage follow up or biopsy of a clinically significant f inding. A written summary of these findings will be mailed to the patient. The patient will be entered into a mammography reporting system which will generate a reminder letter for the patient's next appointmen t at the appropriate interval. [employer] recommends yearly mammograms starting at age 40 and continuing as l marga as a woman is in good health. Breast MRI is recommended for women with an approximate 20-25% or greater lifetime risk of breast cancer, including women with a strong family history of breast or ova maria isabel cancer or who have been treated for Hodgkin's disease. Signer Name: Tra Tee MD Signed: 07/03/2021 5:14 PM Workstation Name: [id number]
== END 2021-07-03 07:34 | disposition home or self-care (01) ==
LOC: MAMMO 07:33
PROVIDERS: ATTEND Obstetrics & Gynecology
DX: Z12.31 Encounter for screening mammogram for malignant neoplasm of breast (principal); N63.21 Unspecified lump in the left breast, upper outer quadrant; N64.89 Other specified disorders of breast
CPT/HCPCS: 77067